=== PATIENT | female | born 1975 ===

== ENCOUNTER 2020-08-08 14:45 | Outpatient (REF) | payer MEDICARE, MEDICAID, SELFPAY | END 2020-08-08 14:46 | disposition home or self-care (01) | LOC: HO.LAB 14:45 | PROVIDERS: Visit Provider Internal Medicine | DX: Z20.828 Contact with and (suspected) exposure to other viral communicable diseases (principal) | CPT/HCPCS: 87635 ==

== ENCOUNTER 2021-02-23 09:58 | Outpatient (REF) | payer MEDICARE, MEDICAID, SELFPAY | END 2021-02-23 09:59 | disposition home or self-care (01) | LOC: HO.LAB 09:58 | PROVIDERS: Visit Provider Internal Medicine | DX: Z20.822 Contact with and (suspected) exposure to COVID-19 (principal) | CPT/HCPCS: C9803; U0003; U0005 ==

== ENCOUNTER 2023-10-30 10:24 | Emergency (ER) | payer OTHER, SELFPAY ==
--- NOTE | ~2023-10-30 | XR_ITS ---
EXAMINATION: XR HIP, RIGHT CLINICAL INFORMATION: Right hip pain COMPARISON: None available. TECHNIQUE: AP pelvis and 2 views of right hip of the right hip. FINDINGS: No fracture. Alignment is anatomic. Hip joint space is maintained. Soft tissues are unremarkable. XR/XR hip RT w PEL1V IMPRESSION: Normal right hip.
--- NOTE | ~2023-10-30 | XR_ITS ---
EXAMINATION: XR LUMBOSACRAL SPINE CLINICAL INFORMATION: Back pain and right hip pain COMPARISON: None available. TECHNIQUE: Three views of the lumbosacral spine. FINDINGS: Vertebral bodies are well aligned intervertebral discs are preserved. Pedicles are intact. There are 5 not ribs bearing vertebral bodies and lumbar spine. There is no spondylolysis or spondylolisthesis. Sacroiliac joints unremarkable. Soft tissues are normal. XR/XR lumbar spine 2-3V IMPRESSION: Unremarkable examination.
[2023-10-30 10:48] VITALS: BP 151/95; PULSE 97; RESP 16; TEMP 36.6; O2SAT 98; BMI 28.5
--- NOTE | 2023-10-30 12:59 | ED_ITS ---
HPI - General Adult General Chief complaint: Back Pain/Injury Stated complaint: Back pain Time Seen by Provider: 10/30/23 11:36 Source: patient Mode of arrival: ambulatory Limitations: no limitations History of Present Illness HPI narrative: [age] year female history of HIV depression presents to ED for right-sided low back pain radiating down leg since yesterday after heavy lifting and moving of boxes and furniture. Patient states back pain worse on movement. Patient denies any blunt trauma. Patient denies any urinary/ bowel incontinence. Patient denies any weakness in lower extremities, fever, chills, nausea, or vomiting. Patient denies any history of IV drug use Related Data Previous Rx's Medication Instructions Recorded cyclobenzaprine 10 mg tablet 10 mg PO TID PRN muscle spasm 5 10/30/23 days #15 tabs ketorolac 10 mg tablet 10 mg PO Q6H PRN pain 5 days #20 10/30/23 tabs prednisone 20 mg tablet 40 mg (2 x 20 mg) PO DAILY 5 days 10/30/23 #10 tabs Allergies Allergy/AdvReac Type Severity Reaction Status Date / Time No Known Allergies Allergy Verified 10/30/23 10:48 [No Known Allergies*] Review of Systems 2 Review of Systems: back pain radiating down right leg after heavy lifting of furniture and boxes Yes all other systems are reviewed and are negative [facility] Social History Social History Advance Directives: No Advance Directives Information Provided: Yes Physical Exam ED Vital Signs: Vital Signs - 24 hr 10/30/23 10:48 Temperature 97.8 F Pulse Rate 97 Respiratory Rate 16 Blood Pressure 151/95 H Pulse Oximetry 98 Oxygen Delivery Method Room Air BMI result Body Mass Index 28.5 Const General: cooperative, healthy appearing, comfortable, no acute distress, well developed and alert Orientation/consciousness: oriented to person, oriented to place, oriented to time and patient oriented x3 HENMT Head: Yes normal to inspection, Yes No palpable skull fracture present, Yes normocephalic and Yes atraumatic Eyes General: appearance normal, both eyes and all related structures Neck Neck: Yes normal visual inspection, Yes full ROM, Yes no lymphadenopathy, Yes no meningeal signs, Yes trachea midline, Yes supple, No anterior neck swelling and No tender Chest Chest palpation & inspection: normal inspection of the chest and normal palpation of entire chest wall Resp Effort & Inspection: normal respiratory effort and able to speak in complete sentences Auscultation: clear to auscultation bilaterally Cardio Jugular venous distension: no JVD Heart sounds: S1 normal heart sound present and S2 normal heart sound present GI Inspection: Yes normal to inspection Palpation (GI): Soft to palpation, not firm, nontender, no guarding and not rigid General: Yes no CVA tenderness Back/Spine/Pelvis Back: no CVA tenderness and back tenderness (right lumbar muscluar no tenderness. no spine tenderness) Back/spine/pelvis image: 2 1. tenderness on palpation. negative for erythema, ecchymosis, crepitus, or deformity. Motor/neuro/vascular exam of right hip lower extremity intact. Skin General skin exam: no rashes or lesions noted, elasticity normal and turgor normal Neuro General: oriented to person, oriented to place, oriented to time, patient oriented x3, gait normal, tone normal, moves all extremities, Normal light touch and pain sensation, no meningeal signs, no focal motor deficits, CN's II-XI intact bilaterally and normal sensation to monofilament Extrem General: Yes normal to inspection, Yes full ROM and Yes capillary refill normal Psych Appearance: grossly normal, well kempt and not disheveled Course Course Course Narrative: Medications Administered Discontinued Medications Generic Name Dose Route Start Last Admin Trade Name Freq PRN Reason Stop Dose Admin Cyclobenzaprine HCl 10 mg 10/30/23 12:49 10/30/23 13:23 Cyclobenzaprine Hcl 10 Mg Tablet PO 10/30/23 12:50 10 mg ONCE ONE Administration Ketorolac Tromethamine 30 mg 10/30/23 12:49 10/30/23 13:24 Ketorolac Tromethamine 30 Mg/Ml Vial IM 10/30/23 12:50 30 mg ONCE ONE Administration Prednisone 60 mg 10/30/23 12:49 10/30/23 13:23 Prednisone 20 Mg Tablet PO 10/30/23 12:50 60 mg ONCE ONE Administration Medical Decision Making Medical Decision Making MDM Narrative: [age] year female with back pain after heavy lifting since yesterday. Patient denies any urinary / bowel incontinence or recent trauma blunt trauma. UA x-ray ordered. 3:18pm: x-rays negative for any fractures. UA clean. Patient states pain resolved after receiving pain medication. Diagnosis muscular sprain / strain/ spasm after lifting heavy boxes. Not suspecting epidural abscess or cauda equinus syndrome. Differential Diagnosis Differential Diagnoses: The differential diagnosis associated with the presentation includes ( Lumbar radiculopathy, sciatica, muscle spasm, muscle sprain/strain UTI, kidney stones) Admission/Observation Consideration of admission/observation: Escalation of care including admission/observation considered Lab Data MDM Lab Attestation statement: I reviewed the patient's lab results. Labs: Lab Results 10/30/23 10/30/23 Range/Units 14:18 14:19 Urine Color Yellow Urine Appearance Clear Urine pH 5.5 (5.0-9.0) Ur Specific [place] 1.015 (1.005-1.025) Urine Protein Negative (Neg-Trace) mg/dL Urine Glucose (UA) Negative (Negative) mg/dL Urine Ketones Negative (Negative) mg/dL Urine Blood Negative (Negative) Urine Nitrite Negative (Negative) Ur Leukocyte Esterase Negative (Negative) Urine Test NEGATIVE (NEGATIVE) Independent Interpretation I performed an independent interpretation of an: Plain X-Ray Radiology Impression Discussion of test interpretation with radiology: I have reviewed the radiologist's reading. External Record Review External record reviewed: Other ( prior visits) Discharge Plan Discharge Clinical Impression: Strain of lumbar region Patient Disposition: Home, Self-Care Instructions: Low Back Strain (ED), Back Pain (ED), R.I.C.E. Treatment (ED) Additional Instructions: Gautam radiograf?a y orina resultaron normales. Regrese al servicio de urgencias de inmediato si presenta cualquier incontinencia urinaria/intestinal, hematuria, disuria, dolor de espalda intenso, debilidad/par?lisis de las extremidades inferiores, fiebre, escalofr?os, dolor abdominal, n?useas, v?mitos, enrojecimiento, decoloraci?n kvng azulada, hinchaz?n o cualquier otra inquietud. s?ntomas. Jacy un seguimiento con el proveedor de atenci?n primaria your x-ray and urine came back normal. Return to the ED immediately for any urinary/bowel incontinence, hematuria, dysuria, severe back pain, weakness / paralysis of lower extremities, fever, chills, abdominal pain, nausea, vomiting, redness, bluish black discoloration, swelling, or any other concerning symptoms. Please follow-up with the primary care provider. Prescriptions: New prednisone 20 mg tablet 40 mg PO DAILY 5 Days Qty: 10 0RF cyclobenzaprine 10 mg tablet 10 mg PO TID PRN (Reason: muscle spasm) 5 Days Qty: 15 0RF Rx Instructions: side effect is drowsiness. Do not take at work or while driving. ketorolac 10 mg tablet 10 mg PO Q6H PRN (Reason: pain) 5 Days Qty: 20 0RF Rx Instructions: received 30mg IM in the ED Interventions: ED Discharge Assessment Last Done: 10/30/23 16:01 Discharge Date/Time: 10/30/23 16:03 Print Language: Romanian
[2023-10-30] MEDS: predniSONE 20 MG TABLET 60 MG PO (13:23)
[2023-10-30] MEDS: Cyclobenzaprine HCl 10 MG TABLET PO (13:23)
[2023-10-30] MEDS: Ketorolac Tromethamine 30 MG/ML VIAL IM (13:24)
[2023-10-30 14:26] LABS: Appearance Urine Clear; Color Urine Yellow; Glucose Urine UA Negative (Negative); Leukocyte Esterase Urine Negative (Negative); Nitrite Urine Negative (Negative); PH 5.5 (5.0-9.0); Specific Gravity - Urine 1.015 (1.005-1.025); Urine Blood Negative (Negative); Urine Ketones Negative (Negative); Urine Protein Negative (Neg-Trace)
[2023-10-30 14:32] LABS: UPreg QC Valid YES; Urine Pregnancy NEGATIVE (NEGATIVE)
== END 2023-10-30 16:03 | disposition home or self-care (01) ==
PROVIDERS: Physician Assistant; Emergency Provider Emergency Medicine
DX: S39.012A Strain of muscle, fascia and tendon of lower back, initial encounter (principal); M25.551 Pain in right hip; X50.0XXA Overexertion from strenuous movement or load, initial encounter; Y93.9 Activity, unspecified; Y92.9 Unspecified place or not applicable; Y99.9 Unspecified external cause status; Z79.899 Other long term (current) drug therapy
CPT/HCPCS: 72100; 73502; 81003; 81025; 96372; 99284; J1885